=== PATIENT | female | born 1975 | race African-American/Black ===

== ENCOUNTER 2018-06-16 17:45 | Inpatient (IN) ==
[2018-06-16] MEDS ORDERED: ONDANSETRON 4 MG/2 ML VIAL IV PRN (21:49)
[2018-06-16] MEDS: LACTATED RINGERS 1,000 ML IV SCH (23:18)
[2018-06-17] MEDS: IBUPROFEN 400 MG TABLET PO PRN (00:44)
[2018-06-17] MEDS: LACTATED RINGERS 1,000 ML IV SCH ×3 (06:56→16:09)
[2018-06-17 13:21] LABS: Basophils # 0.1 10*3/uL (0.0-0.2); Basophils % 1.5 % (0.0-0.8); Eosinophils # 0.1 10*3/uL (0.0-0.87); Eosinophils % 1.7 % (0.00-10.9); Hematocrit 34.1 VOL% (35.7-47.0); Hemoglobin 11.5 GM/DL (12.0-16.0); Immature Granulocytes % 0.2 %; Immature Granulocytes Absolute 0.01 #; Lymphocytes # 1.4 10*3/uL (1.4-4.0); Lymphocytes % 30.5 % (21.3-54.2); Mean Corpuscular HGB Conc 33.7 GM/DL (32-36); Mean Corpuscular Hemoglobin 30 PG (27-34); Mean Corpuscular Volume 89.3 FL (87-102); Monocytes # 0.4 10*3/uL (0.11-0.8); Monocytes % 8.5 % (1.7-12.7); Neutrophils # 2.6 10*3/uL (1.4-7.4); Neutrophils % 57.6 % (38.7-73.9); Platelet Count 180 T/CUMM (130-400); Red Blood Count 3.82 MC/CUMM (3.8-5.5); White Blood Count 4.6 T/CUMM (4-12)
[2018-06-17 13:44] LABS: Albumin 2.8 G/DL (3.4-5.0); Bilirubin,Total 0.4 MG/DL (0.2-1.0); Calcium 8.6 MG/DL (8.5-10.1); Osmolality,Calculated 270.1 MOS/KG (273-304); Total Protein 6.3 G/DL (6.4-8.3)
[2018-06-17] MEDS ORDERED: POTASSIUM CHLORIDE RIDER 10 MEQ in PREMIX 1 EACH IV PRN (13:52)
[2018-06-17] MEDS: GABAPENTIN 300 MG CAPSULE PO SCH (21:06)
[2018-06-17] MEDS: clonazePAM 0.5 MG TABLET PO SCH (21:06)
[2018-06-17 23:35] LABS: Apearance,Urine CLEAR (Clear); Bacteria,Urine Occasional /HPF (Few); Bilirubin,Urine Negative (Negative); Blood, Urine Negative (Negative); Glucose,Urine (UA) Negative (Negative); Ketones,Urine Negative (Negative); Nitrite,Urine Negative (Negative); Protein,Urine Negative; Squamous Epithelial Cell,Urine Occasional /HPF (0-10); Urine Color Straw (Yellow); Urine Specific Gravity 1.004 (1.001-1.035); Urine Urobilinogen < 2.0 EU/DL (0.2-1.0); WBC,Urine <1 /HPF (0-6)
[2018-06-18] MEDS: LACTATED RINGERS 1,000 ML IV SCH ×2 (01:19→10:18)
[2018-06-18] MEDS: traMADol 50 MG TABLET PO PRN (05:18)
[2018-06-18 06:00] LABS: Basophils # 0.1 10*3/uL (0.0-0.2); Basophils % 1.3 % (0.0-0.8); Eosinophils # 0.1 10*3/uL (0.0-0.87); Eosinophils % 2.9 % (0.00-10.9); Hematocrit 30.3 VOL% (35.7-47.0); Hemoglobin 10.1 GM/DL (12.0-16.0); Immature Granulocytes % 0.5 %; Immature Granulocytes Absolute 0.02 #; Lymphocytes # 1.3 10*3/uL (1.4-4.0); Lymphocytes % 33.4 % (21.3-54.2); Mean Corpuscular HGB Conc 33.3 GM/DL (32-36); Mean Corpuscular Hemoglobin 30 PG (27-34); Mean Corpuscular Volume 89.4 FL (87-102); Mean Platelet Volume 12.2 FL (9.6-12.0); Monocytes # 0.5 10*3/uL (0.11-0.8); Monocytes % 11.9 % (1.7-12.7); Neutrophils # 1.9 10*3/uL (1.4-7.4); Platelet Count 155 T/CUMM (130-400); Red Blood Count 3.39 MC/CUMM (3.8-5.5); Red Cell Distribution Width 13.7 % (9.3-17.3); White Blood Count 3.8 T/CUMM (4-12)
[2018-06-18 06:32] LABS: Osmolality,Calculated 277.4 MOS/KG (273-304); Potassium 3.1 MMOL/L (3.5-5.1)
[2018-06-18 06:36] LABS: Risk Ratio 1.95; VLDL CHOLESTEROL 10.4 MG/DL
[2018-06-18] MEDS: POTASSIUM CHLORIDE 20 MEQ TABLET PO PRN ×4 (06:39→17:47)
[2018-06-18 06:43] LABS: Albumin 2.3 G/DL (3.4-5.0); Bilirubin,Total 0.4 MG/DL (0.2-1.0); Osmolality,Calculated 275.5 MOS/KG (273-304); Potassium 3.1 MMOL/L (3.5-5.1); Total Protein 5.2 G/DL (6.4-8.3)
[2018-06-18] MEDS ORDERED: ALBUTEROL 2.5 MG/3 ML NEB RESP TX PRN (07:00)
[2018-06-18] MEDS ORDERED: MAGNESIUM SULF RIDER 2 GM in PREMIX 1 EACH IV PRN (08:04)
[2018-06-18] MEDS ORDERED: MAGNESIUM SULF RIDER 4 GM in PREMIX 1 EACH IV PRN (08:04)
[2018-06-18] MEDS: CLOPIDOGREL 75 MG TABLET PO SCH (10:08)
[2018-06-18] MEDS: ESCITALOPRAM 10 MG TABLET PO SCH (10:08)
[2018-06-18] MEDS: GABAPENTIN 300 MG CAPSULE PO SCH ×2 (10:08→20:14)
[2018-06-18] MEDS: clonazePAM 0.5 MG TABLET PO SCH ×2 (10:08→20:15)
[2018-06-18] MEDS: METOPROLOL TARTRATE 100 MG TABLET PO SCH (20:15)
[2018-06-19] MEDS: traMADol 50 MG TABLET PO PRN (00:50)
[2018-06-19] MEDS: POTASSIUM CHLORIDE 20 MEQ TABLET PO PRN (00:50)
[2018-06-19] MEDS: IBUPROFEN 400 MG TABLET PO PRN (02:56)
[2018-06-19 05:52] LABS: Basophils # 0.1 10*3/uL (0.0-0.2); Basophils % 1.3 % (0.0-0.8); Eosinophils # 0.2 10*3/uL (0.0-0.87); Hematocrit 29.6 VOL% (35.7-47.0); Hemoglobin 9.9 GM/DL (12.0-16.0); Immature Granulocytes % 0.7 %; Immature Granulocytes Absolute 0.03 #; Lymphocytes # 1.3 10*3/uL (1.4-4.0); Lymphocytes % 28.1 % (21.3-54.2); Mean Corpuscular HGB Conc 33.4 GM/DL (32-36); Mean Corpuscular Hemoglobin 30 PG (27-34); Mean Corpuscular Volume 89.7 FL (87-102); Mean Platelet Volume 12.4 FL (9.6-12.0); Monocytes # 0.4 10*3/uL (0.11-0.8); Monocytes % 9.8 % (1.7-12.7); NRBC # 0.05 10*3/uL; Neutrophils # 2.5 10*3/uL (1.4-7.4); Neutrophils % 56.1 % (38.7-73.9); Platelet Count 156 T/CUMM (130-400); Red Cell Distribution Width 14.1 % (9.3-17.3); White Blood Count 4.5 T/CUMM (4-12)
[2018-06-19 06:20] LABS: Albumin 2.3 G/DL (3.4-5.0); Bilirubin,Total 0.4 MG/DL (0.2-1.0); Calcium 8.1 MG/DL (8.5-10.1); Osmolality,Calculated 278.4 MOS/KG (273-304); Potassium 4.2 MMOL/L (3.5-5.1); Total Protein 5.2 G/DL (6.4-8.3)
[2018-06-19] MEDS: METOPROLOL TARTRATE 100 MG TABLET PO SCH (09:44)
[2018-06-19] MEDS: CLOPIDOGREL 75 MG TABLET PO SCH (09:44)
[2018-06-19] MEDS: GABAPENTIN 300 MG CAPSULE PO SCH (09:45)
[2018-06-19] MEDS: ESCITALOPRAM 10 MG TABLET PO SCH (09:45)
[2018-06-19] MEDS: clonazePAM 0.5 MG TABLET PO SCH (09:45)
[2018-06-19 16:54] VITALS: BP 130/86
[2018-06-20] MEDS ORDERED: LISINOPRIL 10 MG TABLET PO SCH (09:00)
[2018-06-20] MEDS ORDERED: LISINOPRIL 10 MG TABLET PO ONE (13:52)
== END 2018-06-19 17:45 | disposition home or self-care (01) | DRG 605 ==
LOC: EDBD → EDUNIT# → N.EDINP 17:45 → N.ED 17:45 → N.3E 21:10
PROVIDERS: ADMIT Surgery; ATTEND Surgery